=== PATIENT | male | born 1940 | race Caucasian/White ===

== ENCOUNTER 2019-05-16 15:39 | Emergency (ER) | payer OTHER, MEDICARE ==
[~2019-05-16] VITALS: Ht 193 cm; Wt 111.1 kg
[2019-05-16 16:35] LABS: ABSOLUTE NEUTROPHILS 4.1 thou/uL (1.4-8.2); BASOPHILS 0.7 % (0.0-2.0); EOSINOPHILS 5.7 % (0.0-3.0); HEMATOCRIT 48.4 % (42.0-52.0); HEMOGLOBIN 15.8 gm/dL (14.0-18.0); LYMPHOCYTES 21.6 % (24.0-44.0); MCH 30.3 pg (26.0-34.0); MCHC 32.7 g/dL (28.0-37.0); MCV 92.8 fL (80.0-100.0); PLATELET COUNT 253 thou/uL (150-400); RBC 5.22 mil/uL (4.50-6.00); RDW 13.7 % (10.5-14.5); WBC 6.3 thou/uL (4.0-11.0)
[2019-05-16 16:40] LABS: ANION GAP 7 mmol/L (7-16); BUN 11 mg/dL (7-18); CALCIUM 8.7 mg/dL (8.5-10.1); CHLORIDE 102 mmol/L (98-107); CO2 32 mmol/L (21-32); CREATININE 1.1 mg/dL (0.7-1.3); GLUCOSE 131 mg/dL (74-106); SODIUM 141 mmol/L (136-145)
[2019-05-16 16:50] LABS: ALBUMIN 3.7 g/dL (3.4-5.0); SGOT 19 U/L (15-37); SGPT 23 U/L (30-65); TOTAL BILIRUBIN 0.5 mg/dL (<0.1-1.0); TOTAL PROTEIN 7.3 g/dL (6.4-8.2); TROPONIN-I <0.06 ng/mL (<0.06)
[2019-05-16] MEDS ORDERED: NORCO 5-325 TA1 EAC1 PO (17:27)
[2019-05-16 17:41] VITALS: BP 133/73
--- NOTE | 2019-05-21 12:32 | EKG ---
[facility] [place] [address] ELECTROCARDIOGRAM REPORT Name: NABOR DILL Room #: DEP [facility]#: [id number] Admission: 05/16/19 Attend Phys: Discharge: 05/16/19 Date of : 44 Report #: [id number] THIS REPORT FOR: cc: Minal Morrissey MD, Emily G. MD Lundgren,Shade Childs MD [facility] ~ THIS REPORT FOR: //name// [facility] ED Test Date: 2019-05-16 Test Time: 15:51:43 Pat Name: NABOR DILL Department: Room: Gender: Manager Inspection: [facility] : 1940 Requested By: Sunil Pederson Order Number: [id number] MD: Shade Nguyen Measurements Intervals [place] Rate: 61 P: 29 KS: 222 QRS: 11 QRSD: 109 T: 68 QT: 454 QTc: 458 Interpretive Statements Sinus rhythm Prolonged [place] interval No previous ECG available for comparison Electronically Signed On 05-16-2019 17:37:47 BILINGUAL RECEPTIONIST by Shade Nguyen [email or web address] <ELECTRONICALLY SIGNED> By: Shade Nguyen MD, [facility] 05/16/19 1737 [id number] Shade Nguyen MD, [facility] /EPI
== END 2019-05-16 17:42 | disposition home or self-care (01) ==
LOC: ER 15:39
PROVIDERS: Physician Assistant
DX: R55 Syncope and collapse (principal); J45.909 Unspecified asthma, uncomplicated; Z90.49 Acquired absence of other specified parts of digestive tract